=== PATIENT | female | born 1970 | race Hispanic/Latino ===

== ENCOUNTER 2017-04-21 15:42 | Emergency (ER) | payer BC ==
[~2017-04-21] VITALS: Ht 144.8 cm; Wt 72.6 kg
[~2017-04-21 15:42] MED LIST: ATENOLOL25 MG PO; CIPRO500 MG PO
[2017-04-21] MEDS ORDERED: ZITHROMAX250 MG PO (16:00)
== END 2017-04-21 16:13 | disposition home or self-care (01) ==
LOC: ED 15:42
DX: H66.93 Otitis media, unspecified, bilateral (principal); I10 Essential (primary) hypertension; Z79.899 Other long term (current) drug therapy
CPT/HCPCS: 99283

== ENCOUNTER 2022-03-23 11:37 | Emergency (ER) | payer BC ==
[~2022-03-23] VITALS: Ht 144.8 cm; Wt 72.6 kg
[~2022-03-23 11:37] MED LIST changes: +ZITHROMAX250 MG PO
[2022-03-23] MEDS ORDERED: LOSARTAN POTASS50 MG PO (14:20)
[2022-03-23] MEDS ORDERED: MONTELUKAST SOD10 MG PO (14:20)
[2022-03-23] MEDS ORDERED: HYDROCHLOROTHIA25 MG PO (14:20)
[2022-03-23] MEDS ORDERED: VENTOLIN HFA18 GM (14:21)
[2022-03-23] MEDS ORDERED: ADVAIR 100-501 EACH INH (14:21)
[2022-03-23] MEDS ORDERED: ZITHROMAX250 MG PO (15:31)
== END 2022-03-23 16:00 | disposition home or self-care (01) ==
LOC: ED 11:37
DX: J18.9 Pneumonia, unspecified organism (principal); H66.92 Otitis media, unspecified, left ear; I10 Essential (primary) hypertension; Z20.822 Contact with and (suspected) exposure to COVID-19; Z79.899 Other long term (current) drug therapy
CPT/HCPCS: 87502; 99283; C9803; U0003